=== PATIENT | male | born 1965 | race Caucasian/White ===

== ENCOUNTER → 2019-01-28 | Outpatient (CLI) | payer BC ==
--- NOTE | 2019-01-28 15:19 | CT ---
EXAM DESCRIPTION: CT ABDOMEN AND PELVIS WITHOUT AND WITH CONTRAST CLINICAL HISTORY: UNSPECIFIED ABDOMINAL PAIN COMPARISON: None Available. TECHNIQUE: CT of the abdomen and pelvis are performed prior to and during IV bolus administration of nonionic contrast. Oral contrast media was not administered. This exam was performed according to our departmental dose-optimization program, which includes automated exposure control, adjustment of the mA and/or kV according to patient size and/or use of iterative reconstruction technique. FINDINGS: Noncontrast imaging of the abdomen demonstrates localized inflammation of the distal pancreatic body and tail with enlargement and up or pancreatic inflammation compared to the remainder of the pancreas. Drainable fluid collection is not apparent. Aortic calcification without significant aneurysm is noted. The liver and spleen and adrenal glands as well as the kidneys appear normal on noncontrast imaging. Left colonic diverticulosis is noted without free abdominal or pelvic ascites is evident. Enhanced examination demonstrates a normal homogeneous enhancement of the liver with borderline hepatomegaly and normally distended gallbladder without evidence stones or wall thickening or ductal dilation. Normal spleen is noted. The pancreatic head and uncinate process as well as the neck and proximal body are normal in appearance. There is heterogeneous enlargement and inflammation involving the distal body and pancreatic tail with peripancreatic inflammation but no well-defined fluid collection. Acute pancreatitis is suspected. A discrete pancreatic mass is thought less likely but could be obscured by the inflammatory changes. Follow-up study after resolution of the acute changes of pancreatitis recommended. The greatest amount of fullness is at the junction of the normal pancreas with the inflamed the distal pancreatic body with more coalescent tissue approximately 2.5 x 3 cm in size. Normal enhancement of this tissue is present without convincing evidence of pancreatic necrosis. Kidneys normally enhance without cyst or mass with a single normal collecting system on each side and layering contrast present within a trabeculated bladder. Prostate and seminal vesicles and pelvic sidewall are unremarkable. Small and large bowel caliber is normal. A small normal appendix in moderate diverticulosis of the left colon is apparent. The anterior abdominal wall and inguinal regions are normal. Aorta is atherosclerotic but not aneurysmal. There is a focal area of inflammation and/or indistinctness involving the distal left common iliac artery and bifurcation with suspected the aneurysm and/or perivascular inflammation of uncertain significance. A large hematoma or retroperitoneal hemorrhage to suggest rupture is not apparent. 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 This is unrelated to the inflammatory changes in the distal pancreatic body and tail. Advanced degenerative changes in the lumbar spine at L4-5 and L5-S1 are present. Anterior abdominal wall appears intact. IMPRESSION: 1. Abnormal pancreas focally involving the distal pancreatic body and tail with enlargement inflammation and peripancreatic stranding consistent with localized distal acute pancreatitis. There is fullness of the distal pancreatic body likely related to the acute inflammation without evidence of necrosis or hemorrhage. Follow-up examination for reevaluation of the pancreas after subsidence of the inflammatory changes is recommended. 2. Abnormal left common iliac artery distally extending to the bifurcation region with indistinctness and inflammatory changes and enlargement of the indistinct vessels suggesting aneurysmal dial dilatation to approximately 1.5 cm. Localized vasculitis or previous injury to the left common iliac artery is suspected. This is unrelated to the region of pancreatitis more superiorly. No evidence of high-grade obstruction or evidence of recent instrumentation in either groin noted. 3. Left colonic diverticulosis. 4. Trabeculated slightly thick-walled incompletely distended bladder with no additional abnormalities. Electronically signed by: Sathish Martinez MD 01/28/2019 3:17 PM CDT
== END ==
LOC: YCFC.O 12:04
PROVIDERS: ATTEND Family Medicine
DX: K86.9 Disease of pancreas, unspecified (principal); I77.89 Other specified disorders of arteries and arterioles; K57.30 Diverticulosis of large intestine without perforation or abscess without bleeding; E78.5 Hyperlipidemia, unspecified; Z86.19 Personal history of other infectious and parasitic diseases

== ENCOUNTER → 2019-02-18 | Outpatient (CLI) | payer OTHER, BC ==
--- NOTE | 2019-02-18 17:33 | CT ---
Procedure: CT LUNG SCREENING Exam Date: 02/18/2019. Ordering Provider: Chad Madrigal Clinical Indication: PERSONAL HISTORY OF TOBACCO USE smoking cessation for 7 months. 35 pack years. This patient meets eligibility criteria for low-dose CT lung cancer screening. Comparison: CT of the abdomen and pelvis 28 January 2019. Technique: Using a multislice scanner, sequential helical axial imaging was obtained in the thorax, 2.5 mm thickness, 2.5 mm separation, from the level of the thoracic inlet through the lung bases without IV contrast. A low dose protocol was utilized for BMI less than 30: BMI: 24.3. CTDI: 1.76 mGy. 120. kVp. 45 mA. DLP 72.1 mGy-centimeters. 2D sagittal and coronal reconstructed images, 6.0 mm thickness, were obtained. This exam was performed according to our departmental dose optimization program which includes use of automated exposure control, adjustment of the mA and/or kV according to patient size and/or use of iterative reconstruction technique. Nodule measurements under 10 mm are given as mean value of 3 axes diameters. FINDINGS: Lungs and large airways: Bilateral centrilobular distribution of blebs which are more prevalent in the upper lobes than the lower lobes. [place] abutting the medial pleura , paratracheal, and also the mediastinum pleura. Bilateral pleural-parenchymal scarring in the base of the right middle lobe and in the inferior lingula. Minimal bilateral posterior dependent atelectasis in the bases. 3 mm nodule subpleural versus pleural thickening in the left apex on axial image 2/20. Round calcified nodule in the inferior right middle lobe laterally abutting the pleura. Smaller calcified nodule in the inferior superior segment right lower lobe. Minimal pleural-parenchymal scarring in the right lower lobe. No abnormal nodules and no masses. No focal infiltrates bilaterally. Pleura and space: Bilateral apical pleural thickening more on the left. Pleural thickening and calcified nodule in the lateral base abutting the right middle lobe. Mediastinum and luis a: evaluation limited by low dose technique and lack of IV contrast. No abnormal size nodules or nodes. Heart and great vessels: Atherosclerotic calcification of coronary vessels brachiocephalic vessels and aorta. Chest wall, lower neck, axillae: Evaluation also limited by same factors as described above. Small right lobe of the thyroid gland. Upper abdomen: Evaluation limited by low-dose technique. No free air or free fluid in the included peritoneal space. Included adrenal glands, spleen, kidneys, stomach, liver, pancreas unremarkable. Gallbladder is contracted. Atherosclerotic calcifications in the aorta. Osseous structures: Evaluation limited by low dose MIP technique. Arthrosis in the bilateral sternoclavicular joints, and the manubriosternal joint, and the left glenohumeral joint with prior surgical repair. IMPRESSION: 3 mm nodule versus apical pleural thickening left upper lobe. Calcified nodule right middle lobe or adjacent pleura.. [facility] Best Practice Recommendations: please see below for Lung RADS category and FOLLOW-UP.* *Lung RADS category CATEGORY 2- Nodules with a very low likelihood (less than 1%) of becoming a clinically active cancer due to size or lack of growth. Nodules: Perifissural nodule(s) < 10 mm. (526mm3). Solid or part solid nodule(s) less than 6mm (113.1 mm3), new solid nodule less than 4mm (33.5 mm3). Ground glass nodule(s) less than 30mm (28550.2 mm3) or unchanged or slow growing ground glass nodule 30mm or greater. Cat 3 or 4 nodule unchanged for 3 or more months. FOLLOW-UP: Continue annual screening with a Low Dose Chest CT in 12 months for re-evaluation. Electronically signed by: Leno Rubio MD 02/18/2019 5:32 PM CDT
== END ==
LOC: CT 08:02
PROVIDERS: ATTEND Family Medicine
DX: Z87.891 Personal history of nicotine dependence (principal); R91.1 Solitary pulmonary nodule; R91.8 Other nonspecific abnormal finding of lung field

== ENCOUNTER → 2019-05-04 | Outpatient (CLI) | payer BC | LOC: LAB.O 12:38 | PROVIDERS: ATTEND Internal Medicine Gastroenterology | DX: K85.90 Acute pancreatitis without necrosis or infection, unspecified (principal) ==

== ENCOUNTER → 2019-05-22 | Outpatient (CLI) | payer BC ==
--- NOTE | 2019-05-22 11:32 | CT ---
EXAM DESCRIPTION: Abdomen w/Contrast CLINICAL HISTORY: 53 years Male, OTHER SPECIFIED DISEASES OF PANCREAS COMPARISON: CT abdomen and pelvis dated 01/28/2019. TECHNIQUE: Contiguous axial images through the abdomen were obtained before and after intravenous contrast administration. Sagittal and coronal reconstructed reviewed. This exam was performed according to our departmental dose-optimization program, which includes automated exposure control, adjustment of the mA and/or kV according to patient size and/or use of iterative reconstruction technique. FINDINGS: Mild atelectasis is noted in the lingula. The liver liver and gallbladder appear grossly unremarkable. The head and uncinate process of the pancreas appear normal. 4.2 x 3.1 cm hypodense lesion is identified in the region of the proximal body of the pancreas. This could represent an acute pancreatic fluid collection. The distal body and tail of the pancreas are not visualized and are probably surgically absent. Changes of splenectomy. Bilateral adrenal glands and kidneys appear normal. The stomach is not well-distended limiting detailed evaluation. The visualized small bowel loops appear normal. Imaged colon appears normal. Significant inflammatory stranding is identified in the left upper quadrant. Moderate atherosclerotic disease of the visualized aorta. The inferior vena cava is normal in size and caliber. No abnormally enlarged lymph nodes are noted. IMPRESSION: The head and uncinate process of the pancreas appear normal. 4.2 x 3.1 cm hypodense lesion is identified in the region of the proximal body of the pancreas. This could represent an acute pancreatic fluid collection. The distal body and tail of the pancreas are not visualized and are probably surgically absent. Significant inflammation is identified in the left upper quadrant of the abdomen. 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
== END ==
LOC: LAB.O 07:46
PROVIDERS: ATTEND Internal Medicine Gastroenterology
DX: K86.9 Disease of pancreas, unspecified (principal); R93.5 Abnormal findings on diagnostic imaging of other abdominal regions, including retroperitoneum

== ENCOUNTER → 2019-09-23 | Outpatient (CLI) | payer BC ==
--- NOTE | 2019-09-23 14:47 | CT ---
EXAM DESCRIPTION: Abdomen/Pelvis w/wo Contrast: Computed Tomography. CLINICAL HISTORY: ACUTE PANCREATITIS COMPARISON: CT scan abdomen without and with IV contrast May 22. TECHNIQUE: Spiral-axial scans at 5 x 5 mm intervals through the abdomen and pelvis before and after 50 mL Optiray 320 nonionic IV contrast. Due to poor IV access, contrast was administered by hand injection. No oral contrast. Coronal and sagittal 2.0 mm reconstructions. 5 mm Delayed helical-axial scans, liver through the pubic symphysis. No adverse reactions. Total Exam DLP 2178 mGy - cm. This exam was performed according to our departmental CT dose-optimization program which includes automated exposure control, adjustment of the mA and/or kV according to patient size and/or use of iterative reconstruction technique; to reduce radiation dose to as low as reasonably achievable (ALARA). FINDINGS: Lung bases and pleura: Minimal pleural-parenchymal scarring. Calcified granuloma right lower lobe. Liver, Stomach, Spleen, Adrenal Glands: Long axis of the liver right lobe is 17.2 cm similar to the prior study with no focal lesions. Possible small hiatal hernia. Pylorus distended by gas. Surgical clips abutting the greater curvature of the stomach and the hepatic flexure the colon with increased density in the adjacent mesentery and superior left lateral abdominal wall. No free air. Small splenule visualized with main body of spleen resected. Adrenal glands unremarkable. Pancreas, Gallbladder, Ducts: Bladder visualized. The distal body and tail of the pancreas have been resected, including fluid collection or inflammatory process seen on the prior study, with minimal residual mesenteric changes, most likely scarring. No recurrent inflammatory process or fluid collection. Kidneys and Ureters: Small cyst inferior lateral right kidney stable. Kidneys and ureters otherwise negative. Mesentery: Postsurgical changes left upper quadrant, and left subdiaphragmatic, as previously described. No free air or free fluid elsewhere. Aorta: Moderate atherosclerosis with tortuosity but outer caliber not enlarged. Small Bowel: Negative. Terminal Ileum/Cecum: Unremarkable. Colon: Minimal diffuse fecal matter and gas. Diverticula in the distal colon with no complications. Pelvic Organs: Prominent prostate gland abutting the base of the urinary bladder. No significant wall thickening and no free fluid. Spine and Bony Pelvis: Spondylosis and disc desiccation L4-L5 and L5-S1. Lumbar levoscoliosis. Spondylosis and minimal anterior vertebral body height loss lower thoracic spine. Hypertrophy superior lateral left acetabulum and narrowing of the underlying hip joint. Abdominal Wall/Back Soft Tissues: Small lymph nodes in the inguinal region. IMPRESSION: 1. Surgical clips abutting the greater curvature of the stomach and, fatty stranding from prior splenectomy still visualized. No free air or free fluid. 2. Fluid collection or inflammatory process in the body of the pancreas has been resected since the prior study with minimal residual fatty density, most likely surgical change. Pancreatic duct not dilated. 3. Stable degenerative changes in the thoracic and lumbar spine. Stable diverticulosis in the distal colon without complications. Minimal hepatomegaly of the right lobe of the liver is unchanged. Hypertrophy of the left acetabulum and narrowing of the underlying hip joint. Electronically signed by: Leno Rubio MD 09/23/2019 2:46 PM CDT
== END ==
LOC: YCFC.O 12:50
PROVIDERS: ATTEND Family Medicine
DX: K85.80 Other acute pancreatitis without necrosis or infection (principal); I10 Essential (primary) hypertension; K86.9 Disease of pancreas, unspecified; M47.894 Other spondylosis, thoracic region; M47.896 Other spondylosis, lumbar region; Z90.81 Acquired absence of spleen; Z98.890 Other specified postprocedural states

== ENCOUNTER → 2019-09-29 | Outpatient (CLI) | payer BC ==
--- NOTE | 2019-09-29 09:57 | US ---
EXAM DESCRIPTION: Gall Bladder: ULTRASOUND. CLINICAL HISTORY: RIGHT UPPER QUADRANT PAIN. Previous partial pancreatectomy. COMPARISON: CT scan abdomen and pelvis September 22 TECHNIQUE: Transabdominal scanning: Hopkins-scale and Doppler modes. FINDINGS: Gallbladder: normal size, shape, echogenicity; no intraluminal stones or sludge. Prominent fold is a normal variant. No fluid around the gallbladder. No wall thickening. 2.0 mm. Non-tender with transducer pressure. Common bile duct: caliber 3.5 mm within normal limits. Liver: Increased echogenicity; contour liver capsule smooth where seen. No fluid around the liver. Intrahepatic biliary ducts normal caliber. Doppler hepatopedal flow portal vein.. 1.2 cm caliber at the flor hepatis. Long axis right lobe 17.2 cm. Pancreas: Obscured by intestinal gas. Aorta: 2.3 cm proximal is normal caliber. Right kidney: long axis is 10.2 cm. Mid renal cortical thickness 12 mm with normal echogenicity. Smooth capsule. No echogenic stones or hydronephrosis.. IMPRESSION: 1. Gallbladder and common bile duct are unremarkable. Fatty liver with minimal enlargement. Physiologic vascularity. Pancreas was not visualized. 2. Minimal thinning of the right renal cortex but otherwise unremarkable. No ascites. Electronically signed by: Leno Rubio MD 09/29/2019 9:55 AM CDT
== END ==
LOC: US 08:13
PROVIDERS: ATTEND Family Medicine
DX: K76.0 Fatty (change of) liver, not elsewhere classified (principal); N28.9 Disorder of kidney and ureter, unspecified

== ENCOUNTER → 2019-12-01 | Outpatient (CLI) | payer BC | LOC: YCFC.O 10:31 | PROVIDERS: ATTEND Family Medicine | DX: K86.1 Other chronic pancreatitis (principal); Z12.5 Encounter for screening for malignant neoplasm of prostate ==

== ENCOUNTER → 2020-03-25 | Outpatient (CLI) | payer BC | LOC: YCFC.O 14:42 | PROVIDERS: ATTEND Nurse Practitioner Family | DX: Z20.828 Contact with and (suspected) exposure to other viral communicable diseases (principal) ==

== ENCOUNTER → 2020-04-20 | Outpatient (CLI) | payer BC | LOC: YCFC.O 07:27 | PROVIDERS: ATTEND Family Medicine | DX: R73.01 Impaired fasting glucose (principal); I10 Essential (primary) hypertension; E78.5 Hyperlipidemia, unspecified; R53.83 Other fatigue ==

== ENCOUNTER → 2020-05-18 | Outpatient (CLI) | payer BC, OTHER | LOC: LAB.O 14:33 | PROVIDERS: ATTEND Urology | DX: R97.20 Elevated prostate specific antigen [PSA] (principal) | CPT/HCPCS: 36415; G0103 ==

== ENCOUNTER → 2020-05-18 | Outpatient (CLI) | payer BC, OTHER ==
--- NOTE | 2020-05-19 14:55 | CT ---
Procedure: CT LUNG SCREENING Exam Date: May 18, 2020 Ordering Provider: Chad Madrigal Clinical Indication: FORMER CIGARETTE SMOKER . Current cigarette smoker. 15 pack years. This patient meets eligibility criteria for low-dose CT lung cancer screening. Comparison: Low-dose CT lung cancer screening examination January 2019. Technique: Using a multislice scanner, sequential helical axial imaging was obtained in the thorax, 2.5 mm thickness, 2.5 mm separation, from the level of the thoracic inlet through the lung bases without IV contrast. A low dose protocol was utilized for BMI less than 30: BMI: 21. CTDI: 1.76 mGy. 120. kVp. 45 mA. DLP 73 mGy-cm. 2D sagittal and coronal reconstructed images, 6.0 mm thickness, were obtained. This exam was performed according to our departmental dose optimization program which includes use of automated exposure control, adjustment of the mA and/or kV according to patient size and/or use of iterative reconstruction technique. Nodule measurements under 10 mm are given as mean value of 3 axes diameters. FINDINGS: Lungs and large airways: Multiple and bilateral blebs and a centrilobular distribution and more prevalent in the upper lung patel bilaterally minimal in the lower lung patel. Stable subpleural calcified nodule anterior base right middle lobe. Stable pleural parenchymal scar lateral left apex. Stable round calcified nodule central right lower lobe. Bilateral lower lobe pleural-parenchymal scarring, more on the right. No abnormal nodules and no mass. No focal or interval development of infiltrate. Stable since the prior study. Pleura and space: Bilateral small confluent regions of thickening. No acute process. No interval change. Mediastinum and luis a: evaluation limited by low dose technique and lack of IV contrast. Normal size lymph nodes with no dominant soft tissue mass. No change from the prior study. Heart and great vessels: Atherosclerotic calcifications in the coronary arteries, aortic arch. No interval change from the prior study. Chest wall, lower neck, axillae: Evaluation also limited by same factors as described above. Unremarkable. Stable since the prior study. Upper abdomen: Evaluation limited by low-dose technique. No free air or free fluid. Gallbladder partially visualized. Surgical clips in the left upper quadrant. Spleen not visualized. Osseous structures: Evaluation limited by low dose MIP technique. Arthrosis in the shoulders, clavicular joints and sternal joints. Prior surgery left glenohumeral region. IMPRESSION: No abnormal nodules and no new mass. No focal or interval development of infiltrate. Stable bilateral emphysematous changes.. [facility] Best Practice Recommendations: please see below for Lung RADS category and FOLLOW-UP.* *Lung RADS category Category 1 - No nodule or definitely benign nodules (probability of malignancy less than 1%). Follow-up: Continue annual screening with Low Dose Chest CT in 12 months. Electronically signed by: Leno Rubio MD 05/19/2020 2:54 PM [facility]
== END ==
LOC: CT 08:18
PROVIDERS: ATTEND Family Medicine
DX: Z12.2 Encounter for screening for malignant neoplasm of respiratory organs (principal); J43.9 Emphysema, unspecified; Z87.891 Personal history of nicotine dependence

== ENCOUNTER → 2020-06-01 | Outpatient (CLI) | payer BC | LOC: LAB.O 07:10 | PROVIDERS: ATTEND Internal Medicine Gastroenterology | DX: E11.9 Type 2 diabetes mellitus without complications (principal); K86.1 Other chronic pancreatitis ==